=== PATIENT | male | born 1990 | race African-American/Black ===

== ENCOUNTER → 2016-12-22 | Outpatient (CLI) | payer OTHER ==
[2016-12-22 12:22] LABS: HEMATOCRIT 45.8 % (42-52); MEAN CELL VOLUME 90.9 fL (80-100); MEAN CORPUSCULAR HEMOGLOBIN 30.8 pg (25-34); MEAN CORPUSCULAR HGB CONC 33.8 g/dl (32-36); MEAN PLATELET VOLUME 11.7 fL (7.4-10.4); PLATELET COUNT 180 K/uL (130-400); RED BLOOD COUNT 5.04 M/uL (4.7-6.1); WHITE BLOOD COUNT 3.31 K/uL (4.8-10.8)
[2016-12-22 13:06] LABS: ALT/SGPT 44 U/L (12-78); AST/SGOT 23 U/L (15-37); BLOOD UREA NITROGEN 15 mg/dl (7-18); BUN/CREATININE RATIO 11.6 (10-20); CARBON DIOXIDE 29 mmol/L (21-32); CHLORIDE 105 mmol/L (98-107); GLUCOSE 83 mg/dl (70-99); POTASSIUM 4.1 mmol/L (3.5-5.1); SODIUM 140 mmol/L (136-145)
[2016-12-22 13:09] LABS: ALB/GLOB RATIO 1.4 (0.9-2); ALKALINE PHOSPHATASE 85 U/L (45-117); CHOLESTEROL 149 mg/dl (0-200); HDL CHOLESTEROL 73 mg/dl; LDL CHOLESTEROL CALCULATED 66 mg/dl; TRIGLYCERIDES 52 mg/dl (0-150); VERY LOW DENSITY LIPOPROT CALC 10 mg/dl
[2016-12-22 13:52] LABS: COMPLETE YES; EOSINOPHIL % 1.8 %; GIANT PLATELETS 2+; LYMPH ABS # 1.41 K/uL (1.2-3.4); LYMPHOCYTE % 42.5 %; NEUTROPHILS % 30.1 %; SMUDGE CELLS PRESENT
[2016-12-24 16:37] LABS: LSP % CELLS ANALYZED CD4 42 % (30-61); LSP ABSOLUTE CT CD4 840 cells/uL (490-1740); LSP LYMPHOCYTES ABSOLUTE 1988 cells/uL (850-3900)
== END | disposition home or self-care (01) ==
LOC: C.LAB1850 11:23
PROVIDERS: ATTEND Internal Medicine Infectious Disease
DX: B20 Human immunodeficiency virus [HIV] disease (principal)

== ENCOUNTER 2017-04-16 04:14 | Emergency (ER) | payer OTHER ==
[~2017-04-16] VITALS: Ht 193 cm; Wt 86.1 kg
[2017-04-16 04:21] VITALS: TEMP 36.4; Ht 193 cm; Wt 86.1 kg
[2017-04-16 05:03] LABS: HEMATOCRIT 47.1 % (42-52); MEAN CELL VOLUME 91.8 fL (80-100); MEAN CORPUSCULAR HEMOGLOBIN 31.2 pg (25-34); MEAN PLATELET VOLUME 12.2 fL (7.4-10.4); PLATELET COUNT 151 K/uL (130-400); RED BLOOD COUNT 5.13 M/uL (4.7-6.1); WHITE BLOOD COUNT 4.98 K/uL (4.8-10.8)
[2017-04-16 05:10] LABS: POINT OF CARE TROPONIN I < 0.030 ng/ml (0-0.045)
[2017-04-16 05:31] LABS: ALKALINE PHOSPHATASE 104 U/L (45-117); ALT/SGPT 35 U/L (12-78); BLOOD UREA NITROGEN 12 mg/dl (7-18); BUN/CREATININE RATIO 9.5 (10-20); CARBON DIOXIDE 30 mmol/L (21-32); CHLORIDE 106 mmol/L (98-107); CKMB/CK RATIO 0.7 (0-3.0); GLUCOSE 84 mg/dl (70-99)
[2017-04-16 05:34] LABS: POTASSIUM 3.7 mmol/L (3.5-5.1); SODIUM 141 mmol/L (136-145)
[2017-04-16 05:39] LABS: AST/SGOT 26 U/L (15-37)
--- NOTE | 2017-04-16 05:48 | EMERGENCY ROOM VISIT NOTE ---
History First contact with patient: 04:24 Chief Complaint: RIB PAIN Stated Complaint: CHEST PAINS,CHEST MUSCLE STIFF,SHARP PAIN BREATHIN History of Present Illness The patient is a 26 year old male who presents to the Emergency Room with complaints of anterior chest pain for the past week described as discomfort, ranging in severity 5 out of 10. Pain increases with breathing. It does not radiate. Patient denies fevers, cough, congestion, abdominal pain, back pain, leg pain or swelling. He has traveled recently. He has HIV and has been taking his medications. He follows with infectious disease. He states he contracted this from his ex-girlfriend. No IV drug abuse. No family history of PE or heart disease. No prior history of heart disease or PE. No injury to the area. CD4 count greater than 700 per patient. Review of Systems See HPI for pertinent positives & negatives. A total of 10 systems reviewed and were otherwise negative. Past Medical/Surgical History HIV Social History Smoking Status: Never Smoker Smokeless Tobacco Use: No Alcohol Use: none Drug Use: none Occupation Status: [id number] student Current/Historical Medications No Active Prescriptions or Reported Meds Physical Exam Vital Signs Date Time Temp Pulse Resp B/P (MAP) Pulse Ox O2 Delivery O2 Flow Rate FiO2 04/16/17 04:55 Room Air 04/16/17 04:55 Room Air 04/16/17 04:21 36.4 52 18 116/72 97 Room Air Physical Exam VITALS: Vitals are noted on the nurse's note and reviewed by myself. Vital signs stable. GENERAL: Pleasant male, in no acute distress, nondiaphoretic, well-developed well-nourished. SKIN: The skin was without rashes, erythema, edema, or bruising. There is no tenting of the skin. Capillary reflex less than 2 seconds. HEAD: Normocephalic atraumatic. EARS: External auditory canals clear, tympanic membranes pearly mckeon without erythema or effusion bilaterally. EYES: Pupils equal round and reactive to light and accommodation. Conjunctivae without injection, sclerae without icterus. Extraocular movements intact. NOSE: Patent, turbinates without inflammation or discharge. MOUTH: Mucous membranes moist. Pharynx without erythema or exudate. Uvula midline. Airway patent. Tongue does not deviate. NECK: Supple without nuchal rigidity. No lymphadenopathy. No thyromegaly. Cervical spine is nontender. No JVD. HEART: Regular rate and rhythm without murmurs gallops or rubs. Chest nontender to palpation LUNGS: Clear to auscultation bilaterally without wheezes, rales or rhonchi. No dullness to percussion. No retractions or accessory muscle use. ABDOMEN: Positive bowel sounds x 4. Normal tympanic percussion. Soft, nontender, without masses or organomegaly. Lyons sign negative. No guarding or rebound tenderness. MUSCULOSKELETAL: No muscle atrophy, erythema, or edema noted. NEURO: Patient was alert and oriented to person place and time. Normal sensation to light and sharp touch. No focal neurological deficits. Medical Decision & Procedures Laboratory Results 04/16/17 04:45 Red Blood Count 5.13, Mean Corpuscular Volume 91.8, Mean Corpuscular Hemoglobin 31.2, Mean Corpuscular Hemoglobin Concent 34.0, Mean Platelet Volume 12.2 04/16/17 04:45 Test 04/16/17 04:45 04/16/17 04:52 White Blood Count 4.98 K/uL (4.8-10.8) Red Blood Count 5.13 M/uL (4.7-6.1) Hemoglobin 16.0 g/dL (14.0-18.0) Hematocrit 47.1 % (42-52) Mean Corpuscular Volume 91.8 fL (80-100) Mean Corpuscular Hemoglobin 31.2 pg (25-34) Mean Corpuscular Hemoglobin Concent 34.0 g/dl (32-36) Platelet Count 151 K/uL (130-400) Mean Platelet Volume 12.2 fL (7.4-10.4) RDW Standard Deviation 42.5 fL (36.4-46.3) RDW Coefficient of Variation 12.6 % (11.5-14.5) Anion Gap 5.0 mmol/L (3-11) Est Creatinine Clear Calc Drug Dose 106.7 ml/min Estimated GFR () 88.5 Estimated GFR (Non- 76.4 BUN/Creatinine Ratio 9.5 (10-20) Calcium Level 9.0 mg/dl (8.5-10.1) Total Bilirubin 1.3 mg/dl (0.2-1) Direct Bilirubin 0.3 mg/dl (0-0.2) Aspartate Amino Transf (AST/SGOT) 26 U/L (15-37) Alanine Aminotransferase (ALT/SGPT) 35 U/L (12-78) Alkaline Phosphatase 104 U/L (45-117) Total Creatine Kinase 312 U/L (39-308) Creatine Kinase MB 2.2 ng/ml (0.5-3.6) Creatine Kinase MB Ratio 0.7 (0-3.0) Troponin I < 0.015 ng/ml (0-0.045) Total Protein 7.1 gm/dl (6.4-8.2) Albumin 3.7 gm/dl (3.4-5.0) Lipase 85 U/L (73-393) Bedside D-Dimer 146 ng/mlFEU (0-450) Bedside Troponin I < 0.030 ng/ml (0-0.045) ED Course Prior records/ancillary studies reviewed. Triage Nursing notes reviewed. The patient's history was concerning for chest pain. Differential diagnosis: Etiologies such as cardiac ischemia, aortic dissection, pulmonary embolism, pneumonia, pneumothorax, musculoskeletal, infections, pericarditis, myocarditis , esophageal rupture, gastrointestinal, as well as others were entertained. Physical examination: As above. ER treatment provided: Patient was observed On reassessment the patient felt better. Diagnostic interpretation by me: The electrocardiogram was negative for pathologic change. Dermal sinus, normal intervals, no acute ST-T wave changes. Impression normal sinus interpreted by myself The labs revealed negative troponin. Negative d-dimer Imaging studies: Chest x-ray no acute consolidation, pneumothorax or free air per my interpretation Exam and history seem consistent with noncardiac chest pain. Patient unremarkable workup as above. He is advised to rest, stay well-hydrated and to follow-up with family care in a few days or here in the ER sooner for chest pain , difficulty breathing, worsening signs or symptoms or as needed. Patient had a negative d-dimer. Do not believe he has a PE. By the evaluation outlined above emergent etiologies such as cardiac ischemia, aortic dissection, pulmonary embolism, pneumonia, pneumothorax, infections, pericarditis, myocarditis, gastrointestinal, as well as others were deemed relatively unlikely. The pt informed about the findings as listed above. All questions were answered and pleased with the treatment. Return instructions were outlined and the patient was discharged in stable condition. Referral: The patient was referred back to primary care physician for follow-up in 2 to 3 days for a recheck of the current condition. Case reviewed with my attending Medical Decision As above Medication Reconcilliation Current Medication List: was personally reviewed by me Blood Pressure Screening Patient's blood pressure: Normal blood pressure Impression Primary Impression: Non-cardiac chest pain Departure Information Dispostion Home / Self-Care Condition GOOD Prescriptions No Active Prescriptions or Reported Meds Referrals No Doctor, Assigned (PCP) Patient Instructions My [facility] Additional Instructions Ibuprofen(Motrin, Advil) may be used for fever or pain. Use 600mg every six hours as needed. Take with food. Avoid using more than 2400mg in a 24 hour period. Do not use 2400mg per day for more than three consecutive days without physician direction. Prolonged inappropriate use can lead to stomach upset or ulcers. (AND/OR) Acetaminophen(Tylenol) may be used for fever or pain. Use 1000mg every six hours as needed. Avoid using more than 3000mg in a 24 hour period. Rest and drink plenty of fluids as tolerated. Continue current medications. Avoid strenuous activities and anything that worsens your pain. Resume normal activities once your symptoms resolve. Return to the ER immediately for worsening or persistent chest pain, abdominal pain, vomiting, fevers, chest pains, difficulty breathing, worsening of your condition, or as needed. Follow up with your primary physician in 2-3 days for a recheck of your current condition.
[2017-04-16 06:11] LABS: BASO ABS # 0.04 K/uL (0-0.2); BASOPHIL % 0.9 % (0-2); COMPLETE YES; EOSINOPHIL % 1.7 %; GIANT PLATELETS 1+; LYMPHOCYTE % 32.2 %; VARIANT LYM ABS # 1.34 K/uL
[2017-04-16 06:26] VITALS: BP 121/77; PULSE 52; O2SAT 98
--- NOTE | 2017-04-16 08:15 | DIAGNOSTIC IMAGING REPORT ---
CHEST ONE VIEW PORTABLE HISTORY: Atypical CHEST PAIN COMPARISON: None. FINDINGS: The lungs are clear. Cardiac silhouette is normal in size for the AP portable technique. No pleural effusions. No pneumothorax. IMPRESSION: No acute process. Electronically signed by: Reyes Thrasher M.D. 04/16/2017 8:13 AM Dictated Date/Time: 04/16/2017 8:12 AM
== END 2017-04-16 06:27 | disposition home or self-care (01) ==
LOC: C.EDB 04:16
DX: R07.89 Other chest pain (principal); B20 Human immunodeficiency virus [HIV] disease

== ENCOUNTER → 2017-05-25 | Outpatient (CLI) | payer OTHER ==
[2017-05-25 13:25] LABS: HEMATOCRIT 44.3 % (42-52); MEAN CELL VOLUME 92.7 fL (80-100); MEAN CORPUSCULAR HEMOGLOBIN 32.2 pg (25-34); MEAN CORPUSCULAR HGB CONC 34.8 g/dl (32-36); MEAN PLATELET VOLUME 12.5 fL (7.4-10.4); PLATELET COUNT 156 K/uL (130-400); RED BLOOD COUNT 4.78 M/uL (4.7-6.1); WHITE BLOOD COUNT 3.68 K/uL (4.8-10.8)
[2017-05-25 13:52] LABS: ALT/SGPT 39 U/L (12-78); BLOOD UREA NITROGEN 14 mg/dl (7-18); CALCIUM 9.7 mg/dl (8.5-10.1); CARBON DIOXIDE 31 mmol/L (21-32); CHLORIDE 104 mmol/L (98-107); GLUCOSE 79 mg/dl (70-99); POTASSIUM 4.2 mmol/L (3.5-5.1); SODIUM 140 mmol/L (136-145)
[2017-05-25 13:55] LABS: ALB/GLOB RATIO 1.2 (0.9-2); ALKALINE PHOSPHATASE 108 U/L (45-117); AST/SGOT 25 U/L (15-37)
[2017-05-25 15:13] LABS: BASO ABS # 0.03 K/uL (0-0.2); BASOPHIL % 0.9 % (0-2); COMPLETE YES; EOSINOPHIL % 1.8 %; LYMPH ABS # 1.68 K/uL (1.2-3.4); LYMPHOCYTE % 45.6 %; NEUTROPHILS % 17.5 %; VARIANT LYM ABS # 1.06 K/uL; VARIANT LYMPHOCYTE % 28.9 %
[2017-05-30 14:38] LABS: LSP % CELLS ANALYZED CD4 36 % (30-61); LSP ABSOLUTE CT CD4 744 cells/uL (490-1740); LSP LYMPHOCYTES ABSOLUTE 2053 cells/uL (850-3900)
== END | disposition home or self-care (01) ==
LOC: C.LAB1850 11:46
PROVIDERS: ATTEND Internal Medicine Infectious Disease
DX: B20 Human immunodeficiency virus [HIV] disease (principal)

== ENCOUNTER → 2017-11-02 | Outpatient (CLI) | payer OTHER ==
[2017-11-02 09:33] LABS: HEMATOCRIT 42.2 % (42-52); HEMOGLOBIN 14.8 g/dL (14.0-18.0); MEAN CELL VOLUME 93.2 fL (80-100); MEAN CORPUSCULAR HEMOGLOBIN 32.7 pg (25-34); MEAN CORPUSCULAR HGB CONC 35.1 g/dl (32-36); MEAN PLATELET VOLUME 12.5 fL (7.4-10.4); PLATELET COUNT 134 K/uL (130-400); RED CELL DISTRIBUTION WIDTH CV 12.5 % (11.5-14.5); RED CELL DISTRIBUTION WIDTH SD 42.8 fL (36.4-46.3)
[2017-11-02 10:12] LABS: ALT/SGPT 38 U/L (12-78); BLOOD UREA NITROGEN 15 mg/dl (7-18); CALCIUM 8.8 mg/dl (8.5-10.1); CARBON DIOXIDE 27 mmol/L (21-32); CREATININE 1.41 mg/dl (0.60-1.40); GLUCOSE 80 mg/dl (70-99); POTASSIUM 3.8 mmol/L (3.5-5.1); SODIUM 139 mmol/L (136-145)
[2017-11-02 10:15] LABS: ALKALINE PHOSPHATASE 99 U/L (45-117); AST/SGOT 29 U/L (15-37); TOTAL PROTEIN 6.9 gm/dl (6.4-8.2)
[2017-11-02 10:30] LABS: BASO % 0.3 %; BASO ABS # 0.01 K/uL (0-0.2); EOS % 0.9 %; EOS ABS # 0.03 K/uL (0-0.5); LYMPH % 50.9 %; LYMPH ABS # 1.73 K/uL (1.2-3.4); MONO % 9.4 %; MONO ABS # 0.32 K/uL (0.11-0.59); NEUT % 38.5 %; NEUT ABS # 1.31 K/uL (1.4-6.5)
== END | disposition home or self-care (01) ==
LOC: C.LAB1850 08:28
PROVIDERS: ATTEND Internal Medicine Infectious Disease
DX: B20 Human immunodeficiency virus [HIV] disease (principal)

== ENCOUNTER → 2018-04-20 | Outpatient (CLI) | payer OTHER ==
[~2018-04-20] MED LIST: ELVI1TAB2 PO
[2018-04-20 16:28] LABS: BASO % 0.4 %; BASO ABS # 0.02 K/uL (0-0.2); EOS % 1.3 %; EOS ABS # 0.06 K/uL (0-0.5); HEMATOCRIT 43.3 % (42-52); HEMOGLOBIN 14.8 g/dL (14.0-18.0); LYMPH % 39.7 %; MEAN CELL VOLUME 92.9 fL (80-100); MEAN CORPUSCULAR HEMOGLOBIN 31.8 pg (25-34); MEAN CORPUSCULAR HGB CONC 34.2 g/dl (32-36); MEAN PLATELET VOLUME 12.1 fL (7.4-10.4); MONO % 6.8 %; MONO ABS # 0.31 K/uL (0.11-0.59); NEUT % 51.8 %; NEUT ABS # 2.34 K/uL (1.4-6.5); PLATELET COUNT 218 K/uL (130-400); RED CELL DISTRIBUTION WIDTH CV 12.2 % (11.5-14.5); RED CELL DISTRIBUTION WIDTH SD 41.1 fL (36.4-46.3); WHITE BLOOD COUNT 4.53 K/uL (4.8-10.8)
[2018-04-20 16:40] LABS: ALBUMIN 3.9 gm/dl (3.4-5.0); ALKALINE PHOSPHATASE 133 U/L (45-117); ALT/SGPT 114 U/L (12-78); AST/SGOT 63 U/L (15-37); BLOOD UREA NITROGEN 14 mg/dl (7-18); CALCIUM 9.1 mg/dl (8.5-10.1); CARBON DIOXIDE 29 mmol/L (21-32); CREATININE 1.28 mg/dl (0.60-1.40); GLUCOSE 78 mg/dl (70-99); POTASSIUM 4.2 mmol/L (3.5-5.1); SODIUM 136 mmol/L (136-145); TOTAL PROTEIN 8.4 gm/dl (6.4-8.2)
[2018-04-21 00:30] LABS: RAPID PLASMA REAGIN REACTIVE (NONREACT)
[2018-04-21 00:35] LABS: RAPID PLASMA REAGIN TITRE 32 DILS (NR)
== END | disposition home or self-care (01) ==
LOC: C.LAB1850 14:50
PROVIDERS: ATTEND Internal Medicine Infectious Disease
DX: B20 Human immunodeficiency virus [HIV] disease (principal)

== ENCOUNTER → 2018-04-26 | Outpatient (CLI) | payer OTHER ==
[~2018-04-26] MED LIST changes: +DIPH25CA65 PO; +MULT-513 PO
[2018-05-01 18:13] LABS: LSP % CELLS ANALYZED CD4 43 % (30-61); LSP ABSOLUTE CT CD4 828 cells/uL (490-1740)
== END | disposition home or self-care (01) ==
LOC: C.LAB1850 10:25
PROVIDERS: ATTEND Internal Medicine Infectious Disease
DX: Z00.00 Encounter for general adult medical examination without abnormal findings (principal); B20 Human immunodeficiency virus [HIV] disease

== ENCOUNTER 2018-04-28 00:01 | Emergency (ER) | payer OTHER ==
[~2018-04-28] VITALS: Ht 193 cm; Wt 86.2 kg
[2018-04-28 00:05] VITALS: TEMP 36.9; Ht 193 cm; Wt 86.2 kg
[2018-04-28 00:52] LABS: BASO % 0.4 %; BASO ABS # 0.02 K/uL (0-0.2); EOS % 1.3 %; EOS ABS # 0.07 K/uL (0-0.5); HEMATOCRIT 38.8 % (42-52); HEMOGLOBIN 13.3 g/dL (14.0-18.0); IG# 0.01 K/uL (0.00-0.02); LYMPH % 43.3 %; LYMPH ABS # 2.34 K/uL (1.2-3.4); MEAN CELL VOLUME 92.6 fL (80-100); MEAN CORPUSCULAR HEMOGLOBIN 31.7 pg (25-34); MEAN CORPUSCULAR HGB CONC 34.3 g/dl (32-36); MEAN PLATELET VOLUME 11.3 fL (7.4-10.4); MONO % 4.4 %; MONO ABS # 0.24 K/uL (0.11-0.59); NEUT % 50.4 %; NEUT ABS # 2.72 K/uL (1.4-6.5); PLATELET COUNT 223 K/uL (130-400); RED CELL DISTRIBUTION WIDTH CV 12.3 % (11.5-14.5); RED CELL DISTRIBUTION WIDTH SD 41.7 fL (36.4-46.3)
[2018-04-28 01:19] LABS: BLOOD UREA NITROGEN 18 mg/dl (7-18); CREATININE 1.31 mg/dl (0.60-1.40); GLUCOSE 99 mg/dl (70-99)
[2018-04-28 01:20] LABS: ALBUMIN 3.3 gm/dl (3.4-5.0); ALKALINE PHOSPHATASE 179 U/L (45-117); ALT/SGPT 108 U/L (12-78); AST/SGOT 54 U/L (15-37); CALCIUM 8.4 mg/dl (8.5-10.1); CARBON DIOXIDE 26 mmol/L (21-32); POTASSIUM 3.7 mmol/L (3.5-5.1); SODIUM 139 mmol/L (136-145); TOTAL PROTEIN 7.4 gm/dl (6.4-8.2)
[2018-04-28] MEDS ORDERED: OPTIRAY 320 IV PRN (01:45)
[2018-04-28] MEDS ORDERED: ELVI1TAB2 PO (01:47)
[2018-04-28 05:38] VITALS: BP 113/66; PULSE 44; O2SAT 99
--- NOTE | 2018-04-28 05:48 | EMERGENCY ROOM VISIT NOTE ---
History First contact with patient: 00:09 Chief Complaint: RESPIRATORY PROBLEMS Stated Complaint: BACK, CHEST, RIB PAIN, PAIN AFTER DEEP BREATHES Nursing Triage Summary: pain in his chest when he takes a deep breath History of Present Illness The patient is a 27 year old male who presents to the Emergency Room with complaints of pain in his chest, ribs and back. He states that he has had pain for the past 3 days, mostly when he takes a deep breath or bends over. He initially thought that the symptoms may be secondary to a muscle strain or gas pains. He states the symptoms seem to be slightly worse on the right side than the left. He took Advil which did offer him some relief. He rates the discomfort a 7/10. He denies shortness of breath. He is a smoker. He denies any recent travel, surgery or immobilization. He denies any history of similar symptoms. He denies any personal or family history of blood clots. Patient does admit that he is HIV positive. Review of Systems A complete 10 point review of systems was reviewed with the patient with pertinent positives and negatives as per history of present illness. All else were negative. Past Medical/Surgical History Medical Problems: (1) HIV (human immunodeficiency virus infection) Social History Smoking Status: Current Some Day Smoker Alcohol Use: none Drug Use: none Occupation Status: [employer] student Current/Historical Medications Scheduled Opvnxjjeixub-Umrggcbsob-Dzyube (Stribild), 1 TAB PO DAILY Physical Exam Vital Signs Date Time Temp Pulse Resp B/P (MAP) Pulse Ox O2 Delivery O2 Flow Rate FiO2 04/28/18 05:55 04/28/18 05:38 44 16 113/66 99 Room Air 04/28/18 05:30 44 15 98 Room Air 04/28/18 05:05 53 04/28/18 05:00 51 23 109/63 98 Room Air 04/28/18 04:49 61 04/28/18 04:30 48 19 98 Room Air 04/28/18 04:26 61 04/28/18 04:23 44 16 109/58 98 Room Air 04/28/18 03:32 62 18 107/66 100 Room Air 04/28/18 02:20 61 04/28/18 02:14 48 04/28/18 01:54 52 18 117/58 97 Room Air 04/28/18 00:44 68 04/28/18 00:44 Room Air 98 04/28/18 00:26 65 04/28/18 00:05 36.9 57 18 117/66 98 Room Air Physical Exam VITALS: Vitals are noted on the nurse's note and reviewed by myself. Vital signs stable. GENERAL: This is a 27-year-old male, in no acute distress, nondiaphoretic, well- developed well-nourished. SKIN: The skin was without rashes. EARS: External auditory canals clear, tympanic membranes pearly mckeon without erythema or effusion bilaterally. EYES: Pupils equal round and reactive to light and accommodation. MOUTH: Mucous membranes moist. Tonsils are not enlarged. Pharynx without erythema or exudate. NECK: Supple without nuchal rigidity. No lymphadenopathy. HEART: Regular rate and rhythm without murmurs gallops or rubs. LUNGS: Clear to auscultation bilaterally without wheezes, rales or rhonchi. No retractions or accessory muscle use. ABDOMEN: Positive bowel sounds x 4. Soft, nontender to palpation. MUSCULOSKELETAL: No chest wall tenderness. NEURO: Patient was alert and oriented to person place and time. Medical Decision & Procedures ER Provider Diagnostic Interpretation: CHEST 1 VIEW: No acute cardiopulmonary abnormalities. Per my interpretation. CT CHEST With Contrast: FINDINGS: No mass lesion are seen. No adenopathy or effusions. The aorta is within normal limits, no aneurysm or dissection. The cardiomediastinal structures are normal. The lungs are clear. The osseous structures are unremarkable. Study was not optimized for evaluation of pulmonary arteries. No gross filling defects demonstrated within the pulmonary arterial tree. IMPRESSION: Unremarkable CT of the chest with contrast Radiologist: Chico Burt MD US VENOUS BILATERAL LOWER EXTREMITIES: FINDINGS: Normal compressibility is demonstrated from the common femoral vein to the calf veins bilaterally. There is normal response to Valsalva and augmentation. Normal spontaneous phasic flow is noted. IMPRESSION: No evidence of deep venous thrombosis. Radiologist: Chico Burt MD Laboratory Results 04/28/18 00:40 Red Blood Count 4.19, Mean Corpuscular Volume 92.6, Mean Corpuscular Hemoglobin 31.7, Mean Corpuscular Hemoglobin Concent 34.3, Mean Platelet Volume 11.3, Neutrophils (%) (Auto) 50.4, Lymphocytes (%) (Auto) 43.3, Monocytes (%) (Auto) 4.4, Eosinophils (%) (Auto) 1.3, Basophils (%) (Auto) 0.4, Neutrophils # (Auto) 2.72, Lymphocytes # (Auto) 2.34, Monocytes # (Auto) 0.24, Eosinophils # (Auto) 0.07, Basophils # (Auto) 0.02 04/28/18 00:40 Test 04/28/18 00:40 White Blood Count 5.40 K/uL (4.8-10.8) Red Blood Count 4.19 M/uL (4.7-6.1) Hemoglobin 13.3 g/dL (14.0-18.0) Hematocrit 38.8 % (42-52) Mean Corpuscular Volume 92.6 fL (80-100) Mean Corpuscular Hemoglobin 31.7 pg (25-34) Mean Corpuscular Hemoglobin Concent 34.3 g/dl (32-36) Platelet Count 223 K/uL (130-400) Mean Platelet Volume 11.3 fL (7.4-10.4) Neutrophils (%) (Auto) 50.4 % Lymphocytes (%) (Auto) 43.3 % Monocytes (%) (Auto) 4.4 % Eosinophils (%) (Auto) 1.3 % Basophils (%) (Auto) 0.4 % Neutrophils # (Auto) 2.72 K/uL (1.4-6.5) Lymphocytes # (Auto) 2.34 K/uL (1.2-3.4) Monocytes # (Auto) 0.24 K/uL (0.11-0.59) Eosinophils # (Auto) 0.07 K/uL (0-0.5) Basophils # (Auto) 0.02 K/uL (0-0.2) RDW Standard Deviation 41.7 fL (36.4-46.3) RDW Coefficient of Variation 12.3 % (11.5-14.5) Immature Granulocyte % (Auto) 0.2 % Immature Granulocyte # (Auto) 0.01 K/uL (0.00-0.02) D-Dimer 710 ug/L FEU (0-500) Anion Gap 8.0 mmol/L (3-11) Est Creatinine Clear Calc Drug Dose 105.1 ml/min Estimated GFR () 87.1 Estimated GFR (Non- 75.1 BUN/Creatinine Ratio 13.7 (10-20) Calcium Level 8.4 mg/dl (8.5-10.1) Total Bilirubin 0.6 mg/dl (0.2-1) Aspartate Amino Transf (AST/SGOT) 54 U/L (15-37) Alanine Aminotransferase (ALT/SGPT) 108 U/L (12-78) Alkaline Phosphatase 179 U/L (45-117) Troponin I < 0.015 ng/ml (0-0.045) Total Protein 7.4 gm/dl (6.4-8.2) Albumin 3.3 gm/dl (3.4-5.0) Globulin 4.1 gm/dl (2.5-4.0) Albumin/Globulin Ratio 0.8 (0.9-2) Thyroid Stimulating Hormone (TSH) 0.758 uIu/ml (0.300-4.500) Lyme Disease IgG Antibody NEG (NEG) Lyme Disease IgM Antibody NEG (NEG) ECG Per My Interpretation Indication: chest pain Rate (beats per minute): 67 Rhythm: normal sinus Findings: 1st degree AV block, no acute ischemic change, other (early repolarization) Change: no significant change ED Course The patient was evaluated as above. Labs were drawn and IV access was obtained. Imaging studies were performed and read by radiology as above. I spoke with the hospitalist, Dr. Wall, about the patient. He feels that the patient can be worked up as an outpatient. I spoke with Dr. Cruz of cardiology. He does not feel the patient requires further workup. Discharge instructions were reviewed with the patient. The patient verbalized understanding of my assessment and treatment plan and was discharged home in good condition. Medical Decision Differential diagnosis includes acute coronary syndrome, pulmonary embolism, pneumothorax, pericarditis, myocarditis, endocarditis, anxiety, musculoskeletal pain, GERD, costochondritis, pneumonia, among others. The patient is a 27-year-old male who presents today complaining of chest, back and rib pain which is worse with deep breath. Labs revealed no leukocytosis. Patient mildly anemic. LFTs are slightly elevated which may be secondary to his HIV medications. D-dimer was found to be elevated. CT of the chest shows no convincing evidence for PE. Ultrasound of the legs negative. Troponin was not elevated. Initial EKG shows a first-degree AV block. However, the patient was placed on the booking clerk and went in and out of a second-degree Mobitz type II AV block, with heart rates down to the 40s. This did not seem to be overly symptomatic for the patient. I did speak with the hospitalist, who did not feel this needs an inpatient workup. I also spoke briefly with the water resources technical officer, who feels this is likely due to conditioning and does not feel the patient will require follow-up. I spoke with patient and recommended close follow-up with [facility] this week. The patient is agreeable to this. He will return with any worsening or new/concerning symptoms The patient's case was reviewed with Dr. Gilliland, ED attending physician, who agreed with my assessment and treatment plan. Based on the patient's presentation and work up, I feel the patient is stable for outpatient treatment. The patient was educated to return to the emergency department for any worsening of their current condition or new/concerning symptoms. He will follow up with [facility]. Medication Reconcilliation Current Medication List: was personally reviewed by me Blood Pressure Screening Patient's blood pressure: Normal blood pressure Impression Primary Impression: Chest tightness Departure Information Dispostion Home / Self-Care Condition GOOD Referrals No Doctor, Assigned (PCP) [facility] Patient Instructions My [facility] Additional Instructions For pain control, you can use the following ielp-nqa-qeluupo medicines (if >12 yo): - Regular strength (325mg/tab) Tylenol (acetaminophen) 2 tabs every 4-6 hours as needed. Do not exceed 12 tablets in a 24 hour period. Avoid taking more than 4 grams (4000 mg) of Tylenol per day. This includes any other sources of acetaminophen you may take on a regular basis. - Regular strength (200 mg/tab) Advil (ibuprofen) 1-2 tabs every 4-6 hours as needed. Do not exceed a dose of 3200 mg per day. Follow-up with [facility] this week for a recheck. Return to the emergency room with worsening chest pain, difficulty breathing, dizziness, symptoms of passing out, or any other new/concerning symptoms.
--- NOTE | 2018-04-28 07:01 | DIAGNOSTIC IMAGING REPORT ---
CHEST ONE VIEW PORTABLE CLINICAL HISTORY: Atypical chest pain COMPARISON STUDY: April 16, 2017 FINDINGS: The cardiac and mediastinal contours are normal. There is no evidence of focal pulmonary consolidation. There is no evidence of failure. No pleural effusions are visualized.[ IMPRESSION: No active disease in the chest. Electronically signed by: Elmer Loaiza M.D. 04/28/2018 7:00 AM Dictated Date/Time: 04/28/2018 7:00 AM
--- NOTE | 2018-04-28 07:10 | DIAGNOSTIC IMAGING REPORT ---
CT ANGIOGRAM OF THE CHEST CLINICAL HISTORY: Chest and back pain. Shortness of breath. Elevated d-dimer. COMPARISON STUDY: Chest x-ray performed April 28, 2018 TECHNIQUE: Following the IV administration of 84 mL of Optiray-320, CT angiogram of the thorax was performed from the thoracic inlet to the lung bases utilizing the pulmonary embolus protocol. Images are reviewed in the axial, sagittal, and coronal planes. IV contrast was administered without complication. MIP imaging was performed. A dose lowering technique was utilized adhering to the principles of ALARA. CT DOSE: 377.89 mGy.cm FINDINGS: No pathologically enlarged axillary mediastinal or hilar lymph nodes were visualized. There was no evidence of thoracic aortic dilatation. There were no pulmonary artery filling defects to indicate acute pulmonary embolism. The examination is mildly compromised due to patient motion artifact No pleural effusions are visualized. There was no evidence of focal pulmonary consolidation. IMPRESSION: 1. Study slightly compromised due to breathing motion artifact 2. No evidence of acute pulmonary embolism 3. No evidence of focal pulmonary consolidation Electronically signed by: Elmer Loaiza M.D. 04/28/2018 7:08 AM Dictated Date/Time: 04/28/2018 7:06 AM
--- NOTE | 2018-04-28 07:58 | DIAGNOSTIC IMAGING REPORT ---
ULTRASOUND VENOUS DOPPLER LWR EXT BILA CLINICAL HISTORY: elevated d-dimer, chest pain COMPARISON STUDY: No previous studies for comparison. FINDINGS: Real-time and color flow Doppler imaging were performed. Flow was seen within the femoral, popliteal and calf veins with no intraluminal thrombus demonstrated. The saphenous vein is patent. IMPRESSION: No evidence of lower extremity DVT. Electronically signed by: Elmer Loaiza M.D. 04/28/2018 7:57 AM Dictated Date/Time: 04/28/2018 7:56 AM
== END 2018-04-28 05:55 | disposition home or self-care (01) ==
LOC: C.EDB 00:03 → C.EDC 05:55
DX: R07.89 Other chest pain (principal); B20 Human immunodeficiency virus [HIV] disease; F17.200 Nicotine dependence, unspecified, uncomplicated